=== PATIENT | female | born 1955 | race Caucasian/White ===

== ENCOUNTER 2025-04-14 08:30 | Day surgery (SDC) | payer MEDICARE, BC ==
[~2025-04-14 08:30] MED LIST: EPINEPHrine 1 MG/ML SDV ONE; Propofol 200 MG/20 ML SDV ONE; Ropivacaine 0.5% 5 MG/ML 30 ML SDV ONE; Sodium Chloride 0.9% 10 ML Syringe FLUSH PRN; Sodium Chloride 0.9% 10 ML Syringe FLUSH SCH; fentaNYL 100 MCG/2 ML SDV ONE
[2025-04-14] MEDS ORDERED: Dexamethasone 4 MG/ML 5 ML MDV ONE (08:31)
[2025-04-14] MEDS ORDERED: dexmedeTOMIDine HCl 200 MCG/2 ML SDV ONE (08:31)
[2025-04-14] MEDS ORDERED: Ondansetron 4 MG/2 ML SDV ONE (08:36)
[2025-04-14] MEDS ORDERED: Propofol 200 MG/20 ML SDV ONE (08:41)
[2025-04-14] MEDS: Lactated Ringers 1,000 ML IV SCH (08:45)
[2025-04-14] MEDS ORDERED: Lidocaine 1% 2 ML ONE (09:00)
[2025-04-14] MEDS ORDERED: fentaNYL 100 MCG/2 ML SDV ONE (10:37)
[2025-04-14] MEDS: Triamcinolone Acetonide 40 MG/ML 1 ML SDV ONE (11:00)
== END 2025-04-14 13:45 | disposition home or self-care (01) ==
LOC: JD.SDS 08:30
PROVIDERS: ATTEND Orthopaedic Surgery
DX: M20.21 Hallux rigidus, right foot (principal); I10 Essential (primary) hypertension; E87.6 Hypokalemia; Z79.899 Other long term (current) drug therapy; M19.071 Primary osteoarthritis, right ankle and foot; K21.9 Gastro-esophageal reflux disease without esophagitis; Z87.891 Personal history of nicotine dependence
CPT/HCPCS: 20600; 28289; 64445; 64447; 76000; J0169; J0665; J0690; J1100; J2003; J2405; J2704; J2795; J3010; J3301; J7120